=== PATIENT | male | born 1940 | race Caucasian/White ===

== ENCOUNTER → 2023-03-12 | Outpatient (CLI) | payer OTHER ==
[~2023-03-12] MED LIST: FINA5 PO; Flonase 0.05% N16 GM; LEVFLO500 PO; LOSARTAN POTASS50 MG PO; SIMV40 PO
== END ==
LOC: PLD 14:49 → LAB 14:49 → LAB SHORT 14:49
DX: C44.622 Squamous cell carcinoma of skin of right upper limb, including shoulder (principal)
CPT/HCPCS: 88305

== ENCOUNTER 2024-02-07 09:32 | Emergency (ER) | payer OTHER ==
[~2024-02-07] VITALS: Ht 177.8 cm; Wt 85.3 kg
[2024-02-07 09:39] VITALS: BP 133/83
[2024-02-07] MEDS ORDERED: Percocet 5-3251 EACH PO ×2 (10:32→11:26)
[2024-02-07] MEDS ORDERED: ONDA4ODT MM ×2 (10:33→11:26)
== END 2024-02-07 10:39 | disposition home or self-care (01) ==
LOC: ER 09:32
DX: M54.16 Radiculopathy, lumbar region (principal); G89.29 Other chronic pain; E11.9 Type 2 diabetes mellitus without complications; Z79.51 Long term (current) use of inhaled steroids; Z79.899 Other long term (current) drug therapy
CPT/HCPCS: 99283

== ENCOUNTER → 2024-03-08 | Outpatient (CLI) | payer OTHER ==
[~2024-03-08] MED LIST changes: +ONDA4ODT MM; +Percocet 5-3251 EACH PO
[2024-03-08 11:00] LABS: Microalb/Creat Ratio UR, Rand 11.968 mg/g (0.000-30.000); Microalbumin, Random Urine 15.2 mg/L (0.000-20.000)
[2024-03-08 21:21] LABS: Alanine Aminotransfer (ALT/SGP 22 U/L (12-78); Albumin, Blood 3.2 g/dL (3.4-5.0); Alk Phos 123 U/L (50-136); Anion Gap 11 mmol/L (3-11); Aspartate Aminotrans (AST/SGOT 17 U/L (12-37); Bilirubin, Total 0.5 mg/dL (0.1-1.0); Blood Urea Nitrogen 15 mg/dL (8-24); Bun/Creatinine Ratio 23.9 (12.0-20.0); CHOL/HDL RATIO 2.2; CO2, Blood 23 mmol/L (21-32); Calcium, Blood 8.8 mg/dL (8.5-10.1); Chloride, Blood 103 mmol/L (98-108); Cholesterol 126 mg/dL (50-200); Creatinine, Blood 0.63 mg/dL (0.60-1.20); Globulin, Blood 3.3 g/dL (2.2-4.0); Glomerular Filtration Rate 95 (60-); Glucose, Blood 152 mg/dL (70-99); HDL Cholesterol 58 mg/dL (>39); LDL/HDL RATIO 0.9; Low Density Lipoprotein Chol 51 mg/dL (0-110); Sodium, Blood 133 mmol/L (136-145); Total Protein, Blood 6.5 g/dL (6.4-8.2); Triglycerides 83 mg/dL (30-160); Very Low Density Lipoprot Chol 17 mg/dL (6-32)
== END | disposition home or self-care (01) ==
LOC: LAB 09:06 → LAB SHORT 09:06 → LAB FUT 08-11 08:55
PROVIDERS: Internal Medicine Endocrinology, Diabetes & Metabolism
DX: E10.65 Type 1 diabetes mellitus with hyperglycemia (principal)
CPT/HCPCS: 36415; 80053; 80061; 82043; 82570; 83036